=== PATIENT | female | born 1965 | race Caucasian/White ===

== ENCOUNTER 2019-08-24 16:32 | Emergency (ER) | payer MEDICARE, MEDICAID ==
[2019-08-24 16:58] LABS: #Basophils 0.1 thou/uL (0.0-0.2); #Eosinphils 0.2 thou/uL (0.0-0.7); #Lymphocytes 3.8 thou/uL (1.20-3.40); #Monocytes 0.5 thou/uL (0.11-0.59); #Neutrophils 4.8 thou/uL (1.40-6.50); %Basophils 1.4 % (0.0-1.0); %Eosinophils 1.7 % (0.0-10.0); %Lymphocytes 40.6 % (21.0-51.0); %Monocytes 5.8 % (0.0-10.0); %Neutrophils 50.5 % (42.0-75.0); Hemoglobin 13.9 g/dL (12.0-16.0); Mean Corpuscular HGB CONC 33.5 g/dL (32.0-36.0); Mean Corpuscular Hemoglobin 30.9 pg (27.0-31.0); Mean Corpuscular Volume 92.2 fL (78.0-98.0); Mean Platelet Volume 7.6 fL (7.4-10.4); Platelet Count 281 thou/uL (130-400); RBC Distribution Width 11.6 % (11.5-14.5); White Blood Cell (WBC) Count 9.4 thou/uL (4.8-10.8)
--- NOTE | 2019-08-24 17:10 | RAD ---
PORTABLE CHEST 1 VIEW: Date: 08/24/2019 Time: 1658 hours HISTORY: Chest pain. FINDINGS: The heart size is normal. The lungs are expanded without lobar consolidation, pneumothoraces, or pleu ral effusions. There are postop changes and metallic hardware in the cervical spine. IMPRESSION: No radiographic evidence of acute cardiopulmonary process. POS: [email or web address]
[2019-08-24] MEDS ORDERED: Lidocaine Viscous Sol 2% 15 ml UD Cup ONE (17:14)
[2019-08-24] MEDS ORDERED: Mag-Al 1200 mg/1200 mg/30 ML UDCUP ONE (17:14)
[2019-08-24 17:17] LABS: ALT (SGPT) 15 U/L (8-55); AST (SGOT) 17 U/L (5-34); Albumin 4.5 g/dL (3.5-5.0); Alkaline Phosphatase 53 U/L (40-110); Anion Gap 12 mmol/L (10-20); BUN (Urea Nitrogen) 15 mg/dL (9.8-20.1); Bilirubin, Total 0.3 mg/dL (0.2-1.2); Calc. Creatinine Clearance 0 mL/min (70-130); Calcium 9.7 mg/dL (7.8-10.44); Carbon Dioxide 31 mmol/L (22-29); Chloride 102 mmol/L (98-107); Estimated GFR-MDRD 69; Globulin 3.2 g/dL (2.4-3.5); Glucose 96 mg/dL (70-105); Potassium 4.2 mmol/L (3.5-5.1); Protein, Total 7.7 g/dL (6.0-8.3); Sodium 141 mmol/L (136-145)
[2019-08-24] MEDS ORDERED: Morphine 2 MG/ML SYRINGE ONE (19:11)
[2019-08-24 19:50] LABS: Troponin I Less than 0.010 ng/mL (< 0.028)
[2019-08-24] MEDS ORDERED: Ibuprofen 100 MG/5 ML UDCUP ONE (21:58)
[2019-08-24] MEDS ORDERED: Acetaminophen 325 MG/10.15 ML UDCUP ONE (21:58)
[2019-08-24] MEDS ORDERED: Bacitracin 1 PK ONE (21:59)
== END 2019-08-24 21:05 | disposition home or self-care (01) ==
LOC: ERS 16:32
DX: R07.89 Other chest pain (principal); F41.9 Anxiety disorder, unspecified; F32.9 Major depressive disorder, single episode, unspecified; Z79.899 Other long term (current) drug therapy; Z79.891 Long term (current) use of opiate analgesic
CPT/HCPCS: 36415; 71045; 80053; 83690; 84484; 85025; 85379; 93005; J2270

== ENCOUNTER 2020-10-28 09:46 | Outpatient (CLI) | payer MEDICARE, MEDICAID | END 2020-10-28 09:47 | disposition home or self-care (01) | LOC: BICMRI 09:46 | PROVIDERS: ATTEND Orthopaedic Surgery | DX: M75.111 Incomplete rotator cuff tear or rupture of right shoulder, not specified as traumatic (principal); M75.51 Bursitis of right shoulder ==

== ENCOUNTER 2021-02-15 05:02 | Emergency (ER) | payer MEDICARE, OTHER ==
[2021-02-15 05:36] LABS: Bilirubin Negative (Negative); Blood, Urine Small (Negative); Glucose, Urine (Dipstick) Negative (Negative); Ketone, Urine 15 mg/dL (Negative); Leukocyte Negative (Negative); Nitrite Negative (Negative); Protein, Urine (Dipstick) Negative (Neg-Trace); Urobilinogen 0.2 mg/dL (Less than 2); pH, Urine 6.5 (5.0-9.0)
[2021-02-15 05:37] LABS: #Basophils 0.1 thou/uL (0.0-0.2); #Lymphocytes 2.2 thou/uL (1.20-3.40); #Monocytes 0.7 thou/uL (0.11-0.59); #Neutrophils 8.3 thou/uL (1.40-6.50); %Basophils 0.6 % (0.0-1.0); %Eosinophils 0.2 % (0.0-10.0); %Lymphocytes 19.1 % (21.0-51.0); %Monocytes 6.5 % (0.0-10.0); %Neutrophils 73.6 % (42.0-75.0); Hemoglobin 14.3 g/dL (12.0-16.0); Mean Corpuscular HGB CONC 33.6 g/dL (32.0-36.0); Mean Corpuscular Hemoglobin 31.5 pg (27.0-31.0); Mean Corpuscular Volume 93.8 fL (78.0-98.0); Mean Platelet Volume 7.2 fL (7.4-10.4); Platelet Count 376 thou/uL (130-400); RBC Distribution Width 11.7 % (11.5-14.5); Red Blood Cell (RBC) Count 4.52 mill/uL (4.20-5.40); White Blood Cell (WBC) Count 11.2 thou/uL (4.8-10.8)
[2021-02-15 05:38] LABS: Clarity Hazy (Clear)
[2021-02-15 05:42] LABS: Bacteria/HPF 2+ HPF (None Seen); RBC/HPF 0-3 HPF (0-3); Squamous Epithelial 0-3 HPF (0-3); WBC/HPF 0-3 HPF (0-3)
[2021-02-15 06:03] LABS: ALT (SGPT) 12 U/L (8-55); AST (SGOT) 15 U/L (5-34); Albumin 4.4 g/dL (3.5-5.0); Alkaline Phosphatase 83 U/L (40-110); Anion Gap 17 mmol/L (10-20); BUN (Urea Nitrogen) 9 mg/dL (9.8-20.1); Bilirubin, Total 0.5 mg/dL (0.2-1.2); Calc. Creatinine Clearance 0 mL/min (70-130); Calcium 10.5 mg/dL (7.8-10.44); Carbon Dioxide 26 mmol/L (22-29); Chloride 98 mmol/L (98-107); Glucose 150 mg/dL (70-105); Protein, Total 7.4 g/dL (6.0-8.3); Sodium 137 mmol/L (136-145)
[2021-02-15] MEDS ORDERED: Mag-Al 1200 mg/1200 mg/30 ML UDCUP ONE (06:21)
[2021-02-15] MEDS ORDERED: Lidocaine Viscous Sol 2% 15 ml UD Cup ONE (06:21)
[2021-02-15] MEDS ORDERED: Ondansetron PF 4 MG/2 ML Vial ONE (06:21)
[2021-02-15] MEDS ORDERED: Iopamidol-370 76% 500 ML 1 ML ONE (09:25)
== END 2021-02-15 08:28 | disposition home or self-care (01) ==
LOC: ERS 05:02
DX: R10.9 Unspecified abdominal pain (principal); R11.2 Nausea with vomiting, unspecified; K21.9 Gastro-esophageal reflux disease without esophagitis
CPT/HCPCS: 36415; 74177; 80053; 81003; 81015; 83690; 85025; 96374; J2405; Q9967

== ENCOUNTER 2021-10-20 13:57 | Outpatient (CLI) | payer MEDICARE, MEDICAID | END 2021-10-20 13:58 | disposition home or self-care (01) | LOC: MRI 13:57 | PROVIDERS: ATTEND Orthopaedic Surgery | DX: Z47.89 Encounter for other orthopedic aftercare (principal); Z98.890 Other specified postprocedural states; Z87.39 Personal history of other diseases of the musculoskeletal system and connective tissue ==

== ENCOUNTER 2021-11-30 08:49 | Observation (INO) | payer MEDICARE, MEDICAID ==
[2021-11-30 09:20] LABS: #Basophils 0.1 thou/uL (0.0-0.2); #Eosinphils 0.2 thou/uL (0.0-0.7); #Lymphocytes 3.5 thou/uL (1.20-3.40); #Monocytes 0.5 thou/uL (0.11-0.59); #Neutrophils 3.9 thou/uL (1.40-6.50); %Basophils 1.3 % (0.0-1.0); %Eosinophils 2.1 % (0.0-10.0); %Lymphocytes 42.9 % (21.0-51.0); %Monocytes 5.6 % (0.0-10.0); %Neutrophils 48.1 % (42.0-75.0); Mean Corpuscular HGB CONC 33.7 g/dL (32.0-36.0); Mean Corpuscular Hemoglobin 32.7 pg (27.0-31.0); Mean Corpuscular Volume 97.1 fL (78.0-98.0); Mean Platelet Volume 6.9 fL (7.4-10.4); Platelet Count 240 thou/uL (130-400); RBC Distribution Width 11.9 % (11.5-14.5); Red Blood Cell (RBC) Count 4.29 mill/uL (4.20-5.40)
[2021-11-30 09:42] LABS: ALT (SGPT) 13 U/L (8-55); AST (SGOT) 19 U/L (5-34); Albumin 4.3 g/dL (3.5-5.0); Alkaline Phosphatase 61 U/L (40-110); Anion Gap 16 mmol/L (10-20); BUN (Urea Nitrogen) 17 mg/dL (9.8-20.1); Bilirubin, Total 0.4 mg/dL (0.2-1.2); Calc. Creatinine Clearance 0 mL/min (70-130); Calcium 9.2 mg/dL (7.8-10.44); Carbon Dioxide 23 mmol/L (22-29); Chloride 104 mmol/L (98-107); Globulin 2.5 g/dL (2.4-3.5); Glucose 101 mg/dL (70-105); Potassium 3.8 mmol/L (3.5-5.1); Protein, Total 6.8 g/dL (6.0-8.3); Sodium 139 mmol/L (136-145)
[2021-11-30] MEDS ORDERED: Lidocaine Viscous Sol 2% 15 ml UD Cup ONE (10:24)
[2021-11-30] MEDS ORDERED: Mag-Al 1200 mg/1200 mg/30 ML UDCUP ONE (10:24)
[2021-11-30 13:11] VITALS: BMI 29.1
[2021-11-30 13:58] LABS: Troponin I Less than 0.010 ng/mL (< 0.028)
[2021-11-30] MEDS ORDERED: Ondansetron PF 4 MG/2 ML Vial IVP PRN (14:10)
[2021-11-30] MEDS ORDERED: Nitroglycerin 0.4 MG TAB (25 Tab Bottle) SL PRN (14:10)
[2021-11-30] MEDS ORDERED: Ondansetron ODT 4 MG TAB PO PRN (14:10)
[2021-11-30 16:54] LABS: Troponin I Less than 0.010 ng/mL (< 0.028)
[2021-11-30] MEDS ORDERED: Calcium Carbonate 500 MG ChewTAB PO PRN (17:42)
[2021-11-30] MEDS: Cyclobenzaprine 10 MG TAB PO SCH (20:17)
[2021-11-30] MEDS: Acetaminophen/Codeine 30-300mg Tablet PO SCH (20:17)
[2021-11-30] MEDS: Famotidine 20 MG TAB PO SCH (20:17)
[2021-11-30] MEDS: Sucralfate 1 GM/10 ML UDCUP PO SCH (20:18)
[2021-11-30] MEDS: Azelastine 137 MCG/Spray 30 ML NS SCH (20:18)
[2021-11-30] MEDS ORDERED: Nortriptyline 10 MG CAP PO SCH (21:00)
[2021-11-30] MEDS ORDERED: Famotidine 20 MG TAB PO SCH (21:00)
[2021-12-01 03:44] VITALS: TEMP 97.4
[2021-12-01 04:48] LABS: Cholesterol 163 mg/dl (< 200 Desired); HDL Cholesterol 55 mg/dL (>60 Neg Risk); LDL Cholesterol, Calculated 99 mg/dL; Magnesium 2.2 mg/dL (1.6-2.6); Triglycerides 43 mg/dL (Less than 150)
[2021-12-01] MEDS ORDERED: Albuterol 200 PUFF (6.7GM INHALER) INH SCH (06:30)
[2021-12-01] MEDS ORDERED: Aspirin Chewable 81 MG TAB PO SCH (09:00)
[2021-12-01] MEDS ORDERED: DULoxetine 60 MG CAP PO SCH (09:00)
[2021-12-01] MEDS ORDERED: Pregabalin 75 MG CAP PO SCH (09:00)
[2021-12-01] MEDS ORDERED: diphenhydrAMINE 25 MG CAP PO SCH (09:00)
[2021-12-01 12:08] LABS: SARS-CoV-2 PCR by NAA Not Detected (NotDetected)
[2021-12-01 13:19] VITALS: BP 110/69
[2021-12-01] MEDS: Cyclobenzaprine 10 MG TAB PO SCH ×2 (13:53→14:21)
[2021-12-01] MEDS: Famotidine 20 MG TAB PO SCH (13:54)
[2021-12-01] MEDS: Acetaminophen/Codeine 30-300mg Tablet PO SCH (13:54)
[2021-12-01] MEDS: Sucralfate 1 GM/10 ML UDCUP PO SCH ×2 (13:55)
[2021-12-01] MEDS: Azelastine 137 MCG/Spray 30 ML NS SCH (13:55)
== END 2021-12-01 15:55 | disposition home or self-care (01) ==
LOC: ERS 08:49 → 2SW 11:05
PROVIDERS: ADMIT Family Medicine; ATTEND Internal Medicine
DX: R07.2 Precordial pain (principal); J44.9 Chronic obstructive pulmonary disease, unspecified; G47.33 Obstructive sleep apnea (adult) (pediatric); K21.9 Gastro-esophageal reflux disease without esophagitis; M79.7 Fibromyalgia; G89.29 Other chronic pain; M54.9 Dorsalgia, unspecified; I12.9 Hypertensive chronic kidney disease with stage 1 through stage 4 chronic kidney disease, or unspecified chronic kidney disease; N18.2 Chronic kidney disease, stage 2 (mild); E78.5 Hyperlipidemia, unspecified; Z87.891 Personal history of nicotine dependence; Z79.899 Other long term (current) drug therapy; Z98.84 Bariatric surgery status; Z20.822 Contact with and (suspected) exposure to COVID-19
CPT/HCPCS: 71045; 78452; 80053; 80061; 83735; 84484 ×2; 85025; 93005; 93017; 94760; 99285; A9500; U0003; U0005; 36415; G0378

== ENCOUNTER 2022-02-27 13:26 | Outpatient (CLI) | payer OTHER | END 2022-02-27 13:27 | disposition home or self-care (01) | LOC: RAD 13:26 | PROVIDERS: ATTEND Internal Medicine Critical Care Medicine | DX: R06.00 Dyspnea, unspecified (principal); T84.226A Displacement of internal fixation device of vertebrae, initial encounter | CPT/HCPCS: 71046 ==

== ENCOUNTER 2022-03-23 18:00 | Outpatient (CLI) | payer OTHER | END 2022-03-23 18:01 | disposition home or self-care (01) | LOC: SLEEPLAB 18:00 | PROVIDERS: ATTEND Internal Medicine Critical Care Medicine | DX: G47.33 Obstructive sleep apnea (adult) (pediatric) (principal); I10 Essential (primary) hypertension; M19.90 Unspecified osteoarthritis, unspecified site; M10.9 Gout, unspecified; F32.9 Major depressive disorder, single episode, unspecified; H70.90 Unspecified mastoiditis, unspecified ear; D64.9 Anemia, unspecified; J98.4 Other disorders of lung; R51.9 Headache, unspecified; G89.29 Other chronic pain | CPT/HCPCS: 95800 ==

== ENCOUNTER 2022-05-08 14:54 | Emergency (ER) | payer OTHER ==
[2022-05-08] MEDS ORDERED: Iopamidol-370 76% 500 ML 1 ML ONE (15:28)
[2022-05-08 15:37] LABS: #Basophils 0.1 thou/uL (0.0-0.2); #Eosinphils 0.1 thou/uL (0.0-0.7); #Lymphocytes 2.2 thou/uL (1.20-3.40); #Monocytes 0.5 thou/uL (0.11-0.59); %Basophils 0.8 % (0.0-1.0); %Eosinophils 0.8 % (0.0-10.0); %Lymphocytes 28.1 % (21.0-51.0); %Neutrophils 64.4 % (42.0-75.0); Hemoglobin 13.2 g/dL (12.0-16.0); Mean Corpuscular HGB CONC 33.7 g/dL (32.0-36.0); Mean Corpuscular Hemoglobin 31.3 pg (27.0-31.0); Mean Corpuscular Volume 92.9 fL (78.0-98.0); Mean Platelet Volume 7.5 fL (7.4-10.4); Platelet Count 268 thou/uL (130-400); Red Blood Cell (RBC) Count 4.23 mill/uL (4.20-5.40); White Blood Cell (WBC) Count 7.8 thou/uL (4.8-10.8)
[2022-05-08 16:05] LABS: ALT (SGPT) 12 U/L (8-55); AST (SGOT) 17 U/L (5-34); Albumin 4.4 g/dL (3.5-5.0); Alkaline Phosphatase 58 U/L (40-110); Anion Gap 13 mmol/L (10-20); BUN (Urea Nitrogen) 11 mg/dL (9.8-20.1); Bilirubin, Total 0.6 mg/dL (0.2-1.2); Calc. Creatinine Clearance 0 mL/min (70-130); Calcium 9.8 mg/dL (7.8-10.44); Carbon Dioxide 28 mmol/L (22-29); Chloride 101 mmol/L (98-107); Estimated GFR 87; Globulin 2.9 g/dL (2.4-3.5); Glucose 105 mg/dL (70-105); Lipase 23 U/L (8-78); Potassium 3.9 mmol/L (3.5-5.1); Protein, Total 7.3 g/dL (6.0-8.3); Sodium 138 mmol/L (136-145)
[2022-05-08] MEDS ORDERED: Ondansetron PF 4 MG/2 ML Vial ONE (16:51)
[2022-05-08] MEDS ORDERED: Morphine 4 MG/ML VIAL ONE (19:03)
[2022-05-08] MEDS ORDERED: Pantoprazole 40 MG VIAL ONE (19:05)
[2022-05-08 19:44] LABS: Bilirubin Negative (Negative); Blood, Urine Negative (Negative); Clarity Clear (Clear); Glucose, Urine (Dipstick) Normal (Negative); Ketone, Urine 20 mg/dL (Negative); Leukocyte Negative Leu/uL (Negative); Nitrite Negative (Negative); Protein, Urine (Dipstick) 10 mg/dL (Neg-Trace); Urobilinogen Normal mg/dL (Less than 2); pH, Urine 7.5 (5.0-9.0)
[2022-05-08 19:45] LABS: Specific Gravity, Urine 1.063 (1.002-1.036)
== END 2022-05-08 19:42 | disposition home or self-care (01) ==
LOC: ERS 14:54
DX: K29.70 Gastritis, unspecified, without bleeding (principal); K21.9 Gastro-esophageal reflux disease without esophagitis
CPT/HCPCS: 74177; 80053; 81003; 83690; 85025; C9113; J2270; J2405

== ENCOUNTER 2022-05-08 21:30 | Inpatient (IN) | payer OTHER ==
[2022-05-08] MEDS ORDERED: Morphine 4 MG/ML VIAL ONE (22:00)
[2022-05-08 22:09] LABS: #Monocytes 0.2 thou/uL (0.11-0.59); #Neutrophils 6.3 thou/uL (1.40-6.50); %Basophils 0.2 % (0.0-1.0); %Eosinophils 0.1 % (0.0-10.0); %Lymphocytes 13.4 % (21.0-51.0); %Monocytes 3.2 % (0.0-10.0); Hemoglobin 14.3 g/dL (12.0-16.0); Mean Corpuscular HGB CONC 32.6 g/dL (32.0-36.0); Mean Corpuscular Hemoglobin 30.7 pg (27.0-31.0); Mean Corpuscular Volume 94.2 fL (78.0-98.0); Mean Platelet Volume 7.5 fL (7.4-10.4); Platelet Count 257 thou/uL (130-400); RBC Distribution Width 11.8 % (11.5-14.5); Red Blood Cell (RBC) Count 4.67 mill/uL (4.20-5.40); White Blood Cell (WBC) Count 7.6 thou/uL (4.8-10.8)
[2022-05-08 22:22] LABS: ALT (SGPT) 12 U/L (8-55); AST (SGOT) 16 U/L (5-34); Albumin 4.2 g/dL (3.5-5.0); Alkaline Phosphatase 59 U/L (40-110); Anion Gap 14 mmol/L (10-20); BUN (Urea Nitrogen) 11 mg/dL (9.8-20.1); Bilirubin, Total 0.5 mg/dL (0.2-1.2); CK (CPK) 31 U/L (29-168); Calc. Creatinine Clearance 0 mL/min (70-130); Calcium 9.3 mg/dL (7.8-10.44); Carbon Dioxide 24 mmol/L (22-29); Chloride 102 mmol/L (98-107); Estimated GFR 85; Globulin 2.4 g/dL (2.4-3.5); Glucose 161 mg/dL (70-105); Potassium 3.9 mmol/L (3.5-5.1); Protein, Total 6.6 g/dL (6.0-8.3); Sodium 136 mmol/L (136-145)
[2022-05-08] MEDS ORDERED: Senokot S 8.6-50 MG TAB PO PRN (22:50)
[2022-05-08] MEDS ORDERED: Bisacodyl 5 MG TAB PO PRN (22:50)
[2022-05-08] MEDS ORDERED: Bisacodyl 10 MG SUPP PR PRN (22:50)
[2022-05-08] MEDS ORDERED: Acetaminophen 325 MG TAB PO PRN (22:50)
[2022-05-08] MEDS ORDERED: Metoclopramide HCl 10 MG/2 ML VIAL IVP PRN (22:51)
[2022-05-08 23:35] LABS: Hemoglobin A1c 5.3 % (4.0-6.0)
[2022-05-09 01:33] LABS: SARS-CoV-2 NAA Rapid Test Not Detected (NotDetected)
[2022-05-09 01:44] LABS: Troponin I Less than 0.010 ng/mL (< 0.028)
[2022-05-09] MEDS ORDERED: Morphine 4 MG/ML VIAL ONE (01:59)
[2022-05-09] MEDS: Morphine 4 MG/ML VIAL SLOW IVP PRN ×3 (02:04→20:06)
[2022-05-09] MEDS: Sodium Chloride 0.9% 1,000 ML IV SCH ×3 (02:07→20:04)
[2022-05-09 04:30] LABS: #Lymphocytes 0.5 thou/uL (1.20-3.40); #Monocytes 0.3 thou/uL (0.11-0.59); #Neutrophils 10.1 thou/uL (1.40-6.50); %Eosinophils 0.1 % (0.0-10.0); %Lymphocytes 4.6 % (21.0-51.0); %Monocytes 2.4 % (0.0-10.0); %Neutrophils 92.9 % (42.0-75.0); Hemoglobin 14.7 g/dL (12.0-16.0); Mean Corpuscular Hemoglobin 31.5 pg (27.0-31.0); Mean Corpuscular Volume 95.3 fL (78.0-98.0); Mean Platelet Volume 7.9 fL (7.4-10.4); Platelet Count 303 thou/uL (130-400); RBC Distribution Width 11.8 % (11.5-14.5); Red Blood Cell (RBC) Count 4.66 mill/uL (4.20-5.40); White Blood Cell (WBC) Count 10.9 thou/uL (4.8-10.8)
[2022-05-09 04:51] LABS: ALT (SGPT) 12 U/L (8-55); AST (SGOT) 14 U/L (5-34); Albumin 4.2 g/dL (3.5-5.0); Alkaline Phosphatase 54 U/L (40-110); Anion Gap 13 mmol/L (10-20); BUN (Urea Nitrogen) 11 mg/dL (9.8-20.1); Bilirubin, Direct 0.2 mg/dL (0.1-0.3); Bilirubin, Total 0.6 mg/dL (0.2-1.2); Calc. Creatinine Clearance 0 mL/min (70-130); Calcium 9.5 mg/dL (7.8-10.44); Carbon Dioxide 26 mmol/L (22-29); Cardiac Risk 3.2 (Less than 4.5); Chloride 102 mmol/L (98-107); Cholesterol 168 mg/dl (< 200 Desired); Estimated GFR 98; Glucose 154 mg/dL (70-105); HDL Cholesterol 53 mg/dL (>60 Neg Risk); LDL Cholesterol, Calculated 108 mg/dL; Magnesium 1.8 mg/dL (1.6-2.6); Potassium 4.2 mmol/L (3.5-5.1); Protein, Total 6.9 g/dL (6.0-8.3); Sodium 137 mmol/L (136-145); Triglycerides 37 mg/dL (Less than 150)
[2022-05-09 04:55] LABS: Troponin I Less than 0.010 ng/mL (< 0.028)
[2022-05-09 05:10] LABS: HBCM Index 0.06 S/CO (0-0.79); HBSAg Index 0.33 S/CO (0-0.99); Hep A IgM AB Non-Reactive (NonReactive); Hep B Surf Ag Non-Reactive S/CO (NonReactive); Hepatitis B Core IgM Abs Non-Reactive (NonReactive)
[2022-05-09 05:15] LABS: Hep C IgG Ab Reflex HepC Qnt (NonReactive); Hep C Index 14.72 S/CO (0-0.79)
[2022-05-09 07:21] VITALS: BMI 29.3
[2022-05-09] MEDS: Pantoprazole 40 MG VIAL IVP SCH ×2 (08:21→20:06)
[2022-05-09] MEDS ORDERED: Ondansetron PF 4 MG/2 ML Vial IVP PRN (09:30)
[2022-05-09] MEDS ORDERED: Ondansetron ODT 4 MG TAB PO PRN (09:30)
[2022-05-09] MEDS ORDERED: Azelastine 137 MCG/Spray 30 ML NS PRN (10:22)
[2022-05-09] MEDS: Cyclobenzaprine 10 MG TAB PO SCH ×2 (15:13→20:06)
[2022-05-09] MEDS: Nortriptyline 10 MG CAP PO SCH (20:06)
[2022-05-10] MEDS: Morphine 4 MG/ML VIAL SLOW IVP PRN ×2 (03:24→16:32)
[2022-05-10] MEDS: Sodium Chloride 0.9% 1,000 ML IV SCH ×2 (05:15→18:40)
[2022-05-10 05:27] LABS: #Monocytes 0.7 thou/uL (0.11-0.59); #Neutrophils 9.8 thou/uL (1.40-6.50); %Basophils 0.2 % (0.0-1.0); %Eosinophils 0.2 % (0.0-10.0); %Lymphocytes 8.7 % (21.0-51.0); %Monocytes 6.1 % (0.0-10.0); %Neutrophils 84.8 % (42.0-75.0); Hemoglobin 12.6 g/dL (12.0-16.0); Mean Corpuscular Hemoglobin 31.3 pg (27.0-31.0); Mean Corpuscular Volume 94.9 fL (78.0-98.0); Mean Platelet Volume 7.7 fL (7.4-10.4); Platelet Count 206 thou/uL (130-400); RBC Distribution Width 11.9 % (11.5-14.5); Red Blood Cell (RBC) Count 4.03 mill/uL (4.20-5.40); White Blood Cell (WBC) Count 11.6 thou/uL (4.8-10.8)
[2022-05-10 05:46] LABS: Anion Gap 10 mmol/L (10-20); BUN (Urea Nitrogen) 13 mg/dL (9.8-20.1); Calc. Creatinine Clearance 114 mL/min (70-130); Carbon Dioxide 26 mmol/L (22-29); Chloride 104 mmol/L (98-107); Estimated GFR 102; Glucose 107 mg/dL (70-105); Magnesium 1.6 mg/dL (1.6-2.6); Potassium 3.7 mmol/L (3.5-5.1); Sodium 136 mmol/L (136-145)
[2022-05-10] MEDS: Cyclobenzaprine 10 MG TAB PO SCH ×3 (08:25→20:18)
[2022-05-10] MEDS: Pregabalin 75 MG CAP PO SCH (08:25)
[2022-05-10] MEDS: DULoxetine 60 MG CAP PO SCH (08:26)
[2022-05-10] MEDS: Pantoprazole 40 MG VIAL IVP SCH ×2 (08:26→20:18)
[2022-05-10] MEDS ORDERED: Ketamine 50 MG/ML (10ML VIAL) ONE (10:39)
[2022-05-10] MEDS ORDERED: Succinylcholine 200 MG/10 ml SYRINGE FS ONE (10:50)
[2022-05-10] MEDS ORDERED: Lidocaine 1% MPF 2 ML VIAL ONE (10:50)
[2022-05-10] MEDS ORDERED: Ondansetron PF 4 MG/2 ML Vial ONE (10:50)
[2022-05-10] MEDS ORDERED: PROPOFOL 200 MG/20 ML VIAL ONE (10:50)
[2022-05-10] MEDS: Sucralfate 1 GM TAB PO SCH ×3 (13:01→20:18)
[2022-05-10] MEDS: Nortriptyline 10 MG CAP PO SCH (20:18)
[2022-05-11] MEDS: Cyclobenzaprine 10 MG TAB PO SCH (09:15)
[2022-05-11] MEDS: Sucralfate 1 GM TAB PO SCH ×2 (09:15→11:09)
[2022-05-11] MEDS: Pregabalin 75 MG CAP PO SCH (09:15)
[2022-05-11] MEDS: Pantoprazole 40 MG VIAL IVP SCH (09:15)
[2022-05-11] MEDS: DULoxetine 60 MG CAP PO SCH (09:16)
[2022-05-11] MEDS ORDERED: Amoxicillin/Potassium Clav 875 MG TAB PO SCH ×3 (10:03→21:00)
[2022-05-11 12:16] VITALS: BP 130/68; TEMP 98.2
[2022-05-11 22:36] LABS: Hep C PCR-Quant HCV Not Detected IU/mL (.)
== END 2022-05-11 13:27 | disposition home or self-care (01) | DRG 383 ==
LOC: ERS 21:30 → ERHOLD 22:52 → 2SW 05-09 07:11 → OBSVTOIN 05-10 07:38
PROVIDERS: ADMIT Family Medicine; ATTEND Internal Medicine
PROC: 0DB68ZX Excision of Stomach, Via Natural or Artificial Opening Endoscopic, Diagnostic (ICD-10-PCS; principal; 2022-05-10)
DX: K27.9 Peptic ulcer, site unspecified, unspecified as acute or chronic, without hemorrhage or perforation (principal); J69.0 Pneumonitis due to inhalation of food and vomit; R18.8 Other ascites; K28.9 Gastrojejunal ulcer, unspecified as acute or chronic, without hemorrhage or perforation; J44.9 Chronic obstructive pulmonary disease, unspecified; G47.30 Sleep apnea, unspecified; Z96.21 Cochlear implant status; K59.00 Constipation, unspecified; R07.89 Other chest pain; K83.8 Other specified diseases of biliary tract; K21.9 Gastro-esophageal reflux disease without esophagitis; M79.7 Fibromyalgia; M54.9 Dorsalgia, unspecified; Z20.822 Contact with and (suspected) exposure to COVID-19; G89.29 Other chronic pain; Z88.8 Allergy status to other drugs, medicaments and biological substances; Z98.84 Bariatric surgery status; Z79.899 Other long term (current) drug therapy; Z79.51 Long term (current) use of inhaled steroids; Z98.890 Other specified postprocedural states; Z98.51 Tubal ligation status; Z90.89 Acquired absence of other organs; K29.70 Gastritis, unspecified, without bleeding
CPT/HCPCS: 36415; 71045; 74177; 74181; 76705; 80048; 80053; 80061; 80074; 80076; 81003; 82550; 83036; 83605; 83690; 83735; 84443; 84484; 85025; 86850; 86900; 86901; 87522; 88305; 88342; 93005; 94760; 96374; 96375; 96376; C9113; G0378; J2270; J2405; J2704; J7050; Q9967; U0002

== ENCOUNTER 2023-08-14 07:50 | Outpatient (CLI) | payer OTHER, MEDICAID ==
[2023-08-14] MEDS ORDERED: E-Z-HD 98% W/W 340GM BOT (x-ray ONLY) ONE (08:15)
[2023-08-14] MEDS ORDERED: Barium Sulfate 96% 176 GM BOT (xray ONLY) PO ONE (08:15)
== END 2023-08-14 07:51 | disposition home or self-care (01) ==
LOC: RAD 07:50
PROVIDERS: ATTEND Surgery
DX: K28.7 Chronic gastrojejunal ulcer without hemorrhage or perforation (principal); K44.9 Diaphragmatic hernia without obstruction or gangrene; K21.9 Gastro-esophageal reflux disease without esophagitis; Z98.890 Other specified postprocedural states
CPT/HCPCS: 74246

== ENCOUNTER 2023-11-14 13:11 | Outpatient (CLI) | payer OTHER, MEDICAID ==
[2023-11-14] MEDS ORDERED: Sincalide 5 MCG VIAL ONE (16:08)
[2023-11-14] MEDS ORDERED: Sterile Water 10 ML ONE (16:08)
[2023-11-14] MEDS ORDERED: Bacteriostatic Normal Saline 30 ML VIAL ONE (16:09)
== END 2023-11-14 13:12 | disposition home or self-care (01) ==
LOC: NM 13:11
PROVIDERS: ATTEND Surgery
DX: K82.9 Disease of gallbladder, unspecified (principal)
CPT/HCPCS: 78227; A9537; J2805

== ENCOUNTER 2024-09-14 09:18 | Emergency (ER) | payer OTHER ==
[2024-09-14 09:47] LABS: #Basophils 0.03 10x3/uL (0.0-0.2); %Basophils 0.6 % (0.0-1.0); %Lymphocytes 37.4 % (21.0-51.0); %Monocytes 8.3 % (0.0-10.0); %Neutrophils 50.5 % (42.0-75.0); Hematocrit 38.4 % (36.0-47.0); Hemoglobin 12.4 g/dL (12.0-16.0); Mean Corpuscular HGB CONC 32.3 g/dL (32.0-36.0); Mean Corpuscular Volume 92.8 fL (78.0-98.0); Mean Platelet Volume 9.4 fL (7.4-10.4); Platelet Count 244 10x3/uL (130-400); RBC Distribution Width 12.8 % (11.5-14.5); Red Blood Cell (RBC) Count 4.14 mill/uL (4.20-5.40)
[2024-09-14 10:03] LABS: ALT (SGPT) 10 U/L (Less than 34); AST (SGOT) 23 U/L (11-34); Albumin 3.8 g/dL (3.1-4.5); Alkaline Phosphatase 51 U/L (40-110); Anion Gap 8 mmol/L (10-20); BUN (Urea Nitrogen) 12 mg/dL (9.8-20.1); Bilirubin, Total 0.3 mg/dL (0.3-1.2); Calc. Creatinine Clearance 0 mL/min (70-130); Calcium 9.7 mg/dL (7.8-10.44); Carbon Dioxide 32 mmol/L (22-29); Chloride 102 mmol/L (98-107); Estimated GFR 94; Globulin 3.3 g/dL (2.4-3.5); Glucose 81 mg/dL (70-105); Lipase 26 U/L (8-78); Protein, Total 7.1 g/dL (6.0-8.3); Sodium 138 mmol/L (136-145)
[2024-09-14 10:14] LABS: Bacteria/HPF None Seen HPF (None Seen); Bilirubin Negative (Negative); Blood, Urine Negative (Negative); CAUTI Indications for Culture Acute Hematuria; Clarity Clear (Clear); Glucose, Urine (Dipstick) Normal (Negative); Ketone, Urine Negative (Negative); Leukocyte 25 Leu/uL (Negative); Nitrite Negative (Negative); Protein, Urine (Dipstick) Negative (Neg-Trace); RBC/HPF None Seen HPF (0-3); Specific Gravity, Urine 1.005 (1.002-1.036); Squamous Epithelial 0-3 HPF (0-3); Urobilinogen Normal mg/dL (Less than 2); WBC/HPF 0-3 HPF (0-3); pH, Urine 7.5 (5.0-9.0)
[2024-09-14] MEDS ORDERED: Thiamine HCl 200 MG/2 ML VIAL ONE (10:30)
[2024-09-14] MEDS ORDERED: Ondansetron PF 4 MG/2 ML Vial ONE ×2 (10:30→10:34)
[2024-09-14 10:40] LABS: Urine Culture Reflex No No
[2024-09-14] MEDS ORDERED: Iopamidol-370 76% 500 ML MDV (1 ML CHARGE) ONE (10:53)
[2024-09-14 10:57] LABS: Lactic Acid 0.68 mmol/L (0.50-2.20)
== END 2024-09-14 12:51 | disposition home or self-care (01) ==
LOC: ERS 09:18
DX: R10.31 Right lower quadrant pain (principal); R10.32 Left lower quadrant pain; K21.9 Gastro-esophageal reflux disease without esophagitis; J44.9 Chronic obstructive pulmonary disease, unspecified; Z79.899 Other long term (current) drug therapy
CPT/HCPCS: 74177; 80053; 81001; 83605; 83690; 85025; 93005; J2405; J3411; 36415; 96365; 96375; Q9967

== ENCOUNTER 2025-03-31 18:08 | Observation (INO) | payer OTHER ==
[2025-03-31] MEDS ORDERED: Fluorescein Opthalmic Strip ONE (19:22)
[2025-03-31] MEDS ORDERED: Proparacaine 0.5% Opth 15 ML BOT ONE (19:22)
[2025-03-31 19:37] LABS: #Basophils 0.03 10x3/uL (0.0-0.2); #Eosinophils 0.06 10x3/uL (0.0-0.7); #Monocytes 0.49 10x3/uL (0.11-0.59); #Neutrophils 2.95 10x3/uL (1.40-6.50); %Basophils 0.5 % (0.0-1.0); %Eosinophils 0.9 % (0.0-10.0); %Lymphocytes 46.6 % (21.0-51.0); %Monocytes 7.4 % (0.0-10.0); %Neutrophils 44.3 % (42.0-75.0); Hematocrit 35.5 % (36.0-47.0); Hemoglobin 11.5 g/dL (12.0-16.0); Mean Corpuscular Hemoglobin 29.9 pg (27.0-31.0); Mean Corpuscular Volume 92.2 fL (78.0-98.0); Platelet Count 253 10x3/uL (130-400); Red Blood Cell (RBC) Count 3.85 mill/uL (4.20-5.40); White Blood Cell (WBC) Count 6.65 10x3/uL (4.8-10.8)
[2025-03-31 19:57] LABS: ALT (SGPT) 13 U/L (Less than 34); AST (SGOT) 20 U/L (11-34); Albumin 4.0 g/dL (3.1-4.5); Alkaline Phosphatase 45 U/L (40-110); Anion Gap 14 mmol/L (10-20); BUN (Urea Nitrogen) 9 mg/dL (9.8-20.1); Bilirubin, Total 0.2 mg/dL (0.3-1.2); Calc. Creatinine Clearance 0 mL/min (70-130); Calcium 9.0 mg/dL (7.8-10.44); Carbon Dioxide 24 mmol/L (23-31); Chloride 106 mmol/L (98-107); Globulin 3.1 g/dL (2.4-3.5); Glucose 91 mg/dL (80-115); Potassium 3.9 mmol/L (3.5-5.1); Sodium 140 mmol/L (136-145)
[2025-03-31] MEDS ORDERED: Acetaminophen 325 MG TAB PO PRN (22:25)
[2025-03-31] MEDS ORDERED: Ondansetron PF 4 MG/2 ML Vial IVP PRN (22:25)
[2025-04-01 01:42] VITALS: BMI 27.4
[2025-04-01 04:26] LABS: #Basophils Less than 0.03 10x3/uL (0.0-0.2); #Eosinophils 0.10 10x3/uL (0.0-0.7); #Monocytes 0.55 10x3/uL (0.11-0.59); #Neutrophils 2.66 10x3/uL (1.40-6.50); %Basophils 0.3 % (0.0-1.0); %Eosinophils 1.6 % (0.0-10.0); %Lymphocytes 46.6 % (21.0-51.0); %Monocytes 8.8 % (0.0-10.0); %Neutrophils 42.5 % (42.0-75.0); Hematocrit 35.9 % (36.0-47.0); Hemoglobin 11.6 g/dL (12.0-16.0); Mean Corpuscular Hemoglobin 30.0 pg (27.0-31.0); Mean Corpuscular Volume 92.8 fL (78.0-98.0); Platelet Count 222 10x3/uL (130-400); Red Blood Cell (RBC) Count 3.87 mill/uL (4.20-5.40); White Blood Cell (WBC) Count 6.25 10x3/uL (4.8-10.8)
[2025-04-01] MEDS ORDERED: Albuterol 2.5 MG (3 mL) NEB NEB PRN (04:53)
[2025-04-01 04:57] LABS: Anion Gap 10 mmol/L (10-20); BUN (Urea Nitrogen) 10 mg/dL (9.8-20.1); Calc. Creatinine Clearance 115 mL/min (70-130); Calcium 8.8 mg/dL (7.8-10.44); Carbon Dioxide 29 mmol/L (23-31); Cardiac Risk 3.4 (Less than 4.5); Chloride 104 mmol/L (98-107); Cholesterol 169 mg/dl (< 200 Desired); Glucose 83 mg/dL (80-115); HDL Cholesterol 49 mg/dL (>60 Neg Risk); LDL Cholesterol, Calculated 104 mg/dL; Potassium 3.6 mmol/L (3.5-5.1); Sodium 139 mmol/L (136-145); Triglycerides 78 mg/dL (Less than 150)
[2025-04-01] MEDS: Aspirin 81 mg Enteric Coated Tablet PO SCH (09:04)
[2025-04-01] MEDS: Pantoprazole 40 MG DR.TAB PO SCH (09:04)
[2025-04-01] MEDS: Sucralfate 1 GM TAB PO SCH (09:04)
[2025-04-01] MEDS: Sertraline 100 MG TAB PO SCH (09:04)
[2025-04-01 12:13] VITALS: BP 102/64; TEMP 97.4
[2025-04-01] MEDS ORDERED: Iopamidol 370 76% 100 ML VIAL ONE (15:15)
== END 2025-04-01 15:15 | disposition home or self-care (01) ==
LOC: ERS 18:08 → ERHOLD 22:30 → 2SE 04-01 01:28
PROVIDERS: ADMIT Internal Medicine; ATTEND Internal Medicine
DX: H53.8 Other visual disturbances (principal); R42 Dizziness and giddiness; I73.9 Peripheral vascular disease, unspecified; K21.9 Gastro-esophageal reflux disease without esophagitis; K27.9 Peptic ulcer, site unspecified, unspecified as acute or chronic, without hemorrhage or perforation; G47.33 Obstructive sleep apnea (adult) (pediatric); J44.89 Other specified chronic obstructive pulmonary disease; M79.7 Fibromyalgia; F41.9 Anxiety disorder, unspecified; F32.A Depression, unspecified; Z98.84 Bariatric surgery status; Z98.51 Tubal ligation status; Z87.891 Personal history of nicotine dependence; Z90.89 Acquired absence of other organs; Z88.6 Allergy status to analgesic agent; Z79.51 Long term (current) use of inhaled steroids; Z79.82 Long term (current) use of aspirin; Z79.899 Other long term (current) drug therapy
CPT/HCPCS: 36415; 70450; 70496; 70498; 70551; 71045; 80048; 80053; 80061; 84484; 85025; 93005; G0378; Q9967

== ENCOUNTER 2025-07-07 12:58 | Outpatient (CLI) | payer OTHER | END 2025-07-07 12:59 | disposition home or self-care (01) | LOC: BICMAMMO 12:58 | PROVIDERS: ATTEND Orthopaedic Surgery | DX: N95.9 Unspecified menopausal and perimenopausal disorder (principal); M85.851 Other specified disorders of bone density and structure, right thigh; M85.852 Other specified disorders of bone density and structure, left thigh | CPT/HCPCS: 77080 ==